=== PATIENT | male | born 1950 | race Caucasian/White ===

== ENCOUNTER → 2017-04-26 | Outpatient (CLI) | payer OTHER ==
[~2017-04-26] MED LIST: ATOR-22 PO; HYDR-5688 PO; OMEP20TA PO
[2017-04-26 14:53] LABS: BASO % 0.4 %; BASO ABS # 0.03 K/uL (0-0.2); COMPLETE YES; EOS % 2.6 %; HEMATOCRIT 42.6 % (42-52); IG% 0.1 %; LYMPH % 21.1 %; LYMPH ABS # 1.56 K/uL (1.2-3.4); MEAN CELL VOLUME 91.6 fL (80-100); MEAN CORPUSCULAR HEMOGLOBIN 32.5 pg (25-34); MEAN CORPUSCULAR HGB CONC 35.4 g/dl (32-36); MEAN PLATELET VOLUME 11.4 fL (7.4-10.4); MONO % 10.4 %; NEUT % 65.4 %; PLATELET COUNT 153 K/uL (130-400); RED BLOOD COUNT 4.65 M/uL (4.7-6.1); WHITE BLOOD COUNT 7.41 K/uL (4.8-10.8)
[2017-04-26 15:37] LABS: BLOOD UREA NITROGEN 26 mg/dl (7-18); BUN/CREATININE RATIO 28.4 (10-20); CALCIUM 9.6 mg/dl (8.5-10.1); CARBON DIOXIDE 26 mmol/L (21-32); CHLORIDE 108 mmol/L (98-107); CREATININE 0.92 mg/dl (0.60-1.40); GLUCOSE 96 mg/dl (70-99); POTASSIUM 4.1 mmol/L (3.5-5.1); SODIUM 140 mmol/L (136-145)
== END | disposition home or self-care (01) ==
LOC: C.LAB 12:17
PROVIDERS: ATTEND Orthopaedic Surgery
DX: Z01.812 Encounter for preprocedural laboratory examination (principal); G56.21 Lesion of ulnar nerve, right upper limb

== ENCOUNTER → 2017-05-05 | Day surgery (SDC) | payer OTHER ==
[2017-05-03 15:47] VITALS: Ht 172.7 cm; Wt 87.3 kg
[~2017-05-05] VITALS: Ht 172.7 cm; Wt 87.3 kg
[~2017-05-05] MED LIST changes: +ATROPINE SULFATE 0.1 MG/ML 5ML SYR IV PRN; +BUPIVACAINE/EPINEPHRINE 0.25% 1:200,000 30 ML VIAL ONE; +CEFAZOLIN 2000 MG/60 ML D5W IV SCH; +EpHEDrine SULFATE INJ 50 MG/ML AMP IV PRN; +FENTANYL CITRATE INJ 50 MCG/1 ML 2 ML VIAL IV PRN; +FENTANYL CITRATE INJ 50 MCG/1 ML 2 ML VIAL ONE; +HYDROCODONE/ACETAMOPHEN 5/325MG TAB PO PRN; +HYDROmorphone INJ 1 MG/ML SYR IV PRN; +LACTATED RINGER'S 1000ML 1,000 ML IV SCH; +LIDOCAINE HCL 2% 2 ML VIAL (20MG/ML) ONE; +MIDAZOLAM HCL 1 MG/ML 2ML VIAL ONE; +ONDANSETRON INJ 2 MG/ML 2 ML VIAL IV PRN; +ONDANSETRON INJ 2 MG/ML 2 ML VIAL ONE; +PHENYLEPHRINE HCL INJ 10 MG/ML VIAL ONE; +PROPOFOL IV EMULSION 10 MG/ML 20 ML VIAL IV ONE; +SODIUM CHLORIDE 0.9% 1000ML 1,000 ML IV SCH
--- NOTE | 2017-05-05 13:03 | History & Physical Bridge - [place] ---
H&P Re-Evaluation Bridge Note: I have examined the patient, reviewed the History & Physical and in the interval since the performance of the History & Physical I have noted the following changes of clinical significance: No changes noted
--- NOTE | 2017-05-05 15:30 | [facility] Post Operative Brief Note ---
Immediate Operative Summary Operative Date May 05, 2017. Pre-Operative Diagnosis Right Cubital Tunnel Syndrome Post-Operative Diagnosis Same Procedure(s) Performed Right Cubital Tunnel Release Surgeon Dr. Prieto [facility] Worker Surgeon(s) Scottie Marin PA-C Estimated Blood Loss 5ML Findings as above Specimens None Complication(s) None Disposition Recovery Room / PACU
--- NOTE | 2017-05-05 15:42 | Discharge Instructions-SurgCtr ---
Discharge Instructions Date of Service May 05, 2017. Visit Reason for Visit: Right Cubital Tunnel Syndrome Discharge Discharge Diagnosis / Problem: SAME ABOVE Discharge Goals Goal(s): Decrease discomfort, Improve function Activity Recommendations Activity Limitations: as noted below Lifting Limitations: until after follow-up appointment Exercise/Sports Limitations: until after follow-up appointment Shower/Bathe: tomorrow Anesthesia . Post Anesthesia Instructions: If you have had General Anesthesia or IV Sedation: * Do not drive today. * Resume driving when surgeon permits. * Do not make important decisions or sign legal documents today. * Call surgeon for: 1. Temperature elevations greater than 101 degrees F. 2. Uncontrollable pain. 3. Excessive bleeding. 4. Persistent nausea and vomiting. 5. Medication intolerance (nausea, vomiting or rash). * For nausea and vomiting use only clear liquids such as: tea, soda, bouillon until nausea subsides, then gradually increase diet as tolerated. * If you have any concerns or questions, call your surgeon's office. If physician is unavailable and it is an emergency, call 911 or go to the nearest emergency room. . Instructions / Follow-Up Instructions / Follow-Up MEDICATIONS: * Resume previous medications unless instructed otherwise by your surgeon. * Always take pain medication on a full stomach or with food to avoid upset stomach. * Do not drink alcohol or drive while taking narcotics. * Ibuprofen or Tylenol may be taken if narcotic not needed. SPECIAL CARE INSTRUCTIONS: __ None _X_ Keep extremity elevated and iced x 48 hours; apply ice 20-30 minutes 8-10 times/day. May remove at night. _X_ Sling _X_24 hrs/day __ Remove at night __ Shoulder Immobilizer __ 24 hrs/day __ Remove at night _X_ Dressing _X_ Maintain until seen in office, may shower with plastic over site __ Remove dressings in 24-48 hours and then may shower __ Cover incisions with band-aids after showering __ Do not remove steri-strips Call physician if chills or temperature rises above 102 degrees or pain unrelieved by prescribed pain medications at . . Diet Recommendations Home Diet: no limitations Fluid Restriction: None Procedures Procedures Performed: Right Cubital Tunnel Release Pending Studies Studies pending at discharge: no Work Instructions Return To Work: after follow-up Medical Emergencies . Who to Call and When: Medical Emergencies: If at any time you feel your situation is an emergency, please call 911 immediately. . Non-Emergent Contact Non-Emergency issues call your: Primary Care Provider Call Non-Emergent contact if: you have a fever, temperature is above 101.5 . . "Provider Documentation" section prepared by Abdi Marin. .
[2017-05-05 16:14] VITALS: TEMP 36.3
[2017-05-05 16:36] VITALS: BP 149/104; PULSE 92; O2SAT 97
--- NOTE | 2017-05-05 16:42 | Anesthesiology Progress Note ---
Anesthesia Post Op Note Date & Time May 05, 2017 at 16:42 Vital Signs Pain Intensity: 2 Vital Signs Past 12 Hours Date Time Temp Pulse Resp B/P (MAP) Pulse Ox O2 Delivery O2 Flow Rate FiO2 05/05/17 16:36 92 18 149/104 (119) 97 Room Air 05/05/17 16:14 36.3 94 18 153/99 (117) 97 Room Air 05/05/17 16:11 157/109 05/05/17 16:11 36.4 95 Room Air 05/05/17 16:07 87 11 97 05/05/17 16:07 87 11 05/05/17 16:06 164/102 05/05/17 16:02 81 17 100 05/05/17 16:02 81 17 05/05/17 16:01 83 16 149/102 100 05/05/17 16:01 83 16 05/05/17 15:56 82 16 143/98 100 05/05/17 15:56 82 16 05/05/17 15:55 87 18 100 05/05/17 15:55 86 18 05/05/17 15:53 147/99 05/05/17 15:51 155/102 05/05/17 15:50 87 16 05/05/17 15:50 87 16 99 05/05/17 15:46 147/99 05/05/17 15:45 88 15 05/05/17 15:45 88 15 98 05/05/17 15:41 144/104 05/05/17 15:40 36.4 90 16 144/104 99 Mask 6 05/05/17 15:40 89 96 05/05/17 15:40 89 05/05/17 12:22 36.5 96 16 129/94 (106) 97 Room Air Notes Mental Status: alert / awake / arousable, participated in evaluation Pt Amnestic to Procedure: Yes Nausea / Vomiting: adequately controlled Pain: adequately controlled Airway Patency, RR, SpO2: stable & adequate BP & HR: stable & adequate Hydration State: stable & adequate Anesthetic Complications: no major complications apparent
--- NOTE | 2017-05-05 19:13 | OPERATIVE REPORT ---
DATE OF OPERATION: 05/05/2017 PREOPERATIVE DIAGNOSIS: Severe ulnar nerve entrapment at the cubital tunnel of the right elbow. POSTOPERATIVE DIAGNOSIS: Same. PROCEDURE: Right open cubital tunnel release with subcutaneous ulnar nerve transposition. SURGEON: Dr. Esau Prieto. FORGE HELPER: Ildefonso Marin PA-C, whose assistance was necessary for retraction and helping positioning the elbow. ANESTHESIA: General. COMPLICATIONS: None. CONDITION: Stable to PACU. INDICATIONS: Garcia is a pleasant 66-year-old male who presented to my office with persistent numbness in the ulnar nerve distribution of his right hand. He was also having weakness of the ulnar nerve distribution. EMG study was then done which showed severe entrapment at the cubital tunnel of the right elbow. He elected to undergo open cubital tunnel release and transposition. DESCRIPTION OF PROCEDURE: On 05/05/2017 he arrived at [facility] for the above procedure. He was seen in the preoperative holding area and the operative extremity was identified and signed. He was given a preoperative antibiotic, taken back to the operating room, laid on the table in supine position and put under general anesthesia. The right elbow was then prepped and draped in sterile fashion. Time-out was done and the patient and operative extremity was properly identified. A curvilinear incision was made just posterior to the medial epicondyle. Dissection was taken down through the fascia with care not to disrupt the medial antebrachial cutaneous nerve. The Shane fascia was identified and then released. The ulnar nerve was visualized underneath. The flexor pronator mass was then released and this is where most of the entrapment seemed to be coming from. It was very tight. Once I opened up the flexor pronator mass, there was actually some gelatinous fluid that came out indicative of a cyst and possible mass compression on the nerve. I then freed up the nerve proximally and released the intermuscular septum. The nerve was then controlled with a [place] drain and I was able to free up the posterior aspect without disrupting the vein or the motor branch. A fascial sling was then made from the flexor pronator mass and the nerve was transposed anteriorly and the fascial sling was tied to the subcutaneous tissue. Time was taken to ensure a complete freedom of the nerve and there was no kinking on flexion or extension. The wound was then irrigated and closed with 3-0 Vicryl and a 3-0 nylon suture. He was then placed in a posterior splint, extubated, and taken to the postanesthesia care unit in stable condition. He tolerated the procedure well. I attest to the content of the Intraoperative Record and any orders documented therein. Any exception s are noted below.
== END | disposition home or self-care (01) ==
LOC: X.SURG 10:50
PROVIDERS: ATTEND Orthopaedic Surgery
DX: G56.21 Lesion of ulnar nerve, right upper limb (principal); Z82.49 Family history of ischemic heart disease and other diseases of the circulatory system; Z83.3 Family history of diabetes mellitus